=== PATIENT | female | born 1995 | race Caucasian/White ===

== ENCOUNTER 2022-12-08 12:50 | Inpatient (IN) | payer SELFPAY, OTHER ==
[2022-12-08] VITALS (24 sets, daily range): BP systolic 119–142; BP diastolic 66–94; PULSE 90–120; TEMP 36.4–37.2; O2SAT 97–99; BMI 30.9
[2022-12-08] MEDS: Lactated Ringers 1,000 ML 50 ML IV (13:40)
[2022-12-08 13:51] LABS: Absolute Lymphocyte Count 1.54 X10^3/uL (0.83-4.51); Absolute Neutrophil Count 9.2 X10^3/uL (2.0-7.7); Basophil# 0.02 X10^3/uL; Basophil% 0.2 % (0-1); Eosinophil# 0.04 X10^3/uL; Eosinophils% 0.3 % (0-5); Hematocrit 39.8 % (37-47); Hemoglobin 13.4 g/dL (12.0-15.0); Lymphocyte # 1.54 X10^3/ul (0.83-4.51); Lymphocyte % 13.4 % (19-41); Mean Corp Hgb Conc 33.7 g/dL (32-36); Mean Corpuscular Hgb 29.1 pg (27.0-32.0); Mean Corpuscular Volume 86.5 fL (81-99); Mean Platelet Vol. 11.8 fl (6.2-12.0); Monocyte# 0.67 X10^3/uL; Monocyte% 5.8 % (0-10); NRBC Flagged by Analyzer 0 % (0-5); Neutrophil # 9.18 X10^3/uL (2.7-7.7); Platelet Count 146 K/mm3 (150-450); RBC Distribution Width CV 14.3 % (11.6-14.6); RBC Distribution Width SD 44.3 fl (35.1-43.9); White Blood Count 11.5 K/mm3 (4.4-11.0)
[2022-12-08 14:08] LABS: ROM Internal Control Test YES-OK TO RESULT pt. (Internal QC)
[2022-12-08 14:09] LABS: ROM Patient Test POSITIVE (Negative)
[2022-12-08 14:34] LABS: Rubella IgG Reactive (Nonreactive); Syphilis Antibodies Non-reactive
[2022-12-08] MEDS: Oxytocin 15 Units/NS 250ml 15 UNITS/250 ML IV.SOLN 2 UNITS IV (14:34)
[2022-12-08 14:51] LABS: HIV - WCH Non-Reactive (Nonreactive); Hepatitis B Surface Antigen Non-Reactive (Nonreactive); Hepatitis C Antibody Non-Reactive (Nonreactive)
[2022-12-08 14:53] LABS: Bacteria 0 SEEN /hpf (None Seen); Mucous, Urine 0 SEEN /hpf (<or=2+)
[2022-12-08 14:55] LABS: Color, Urine Yellow (Yellow); Glucose, Dipstick Normal (Normal); Ketone-Dipstick 50 mg/dl (Negative); Leukocyte Esterase-Dipstick 500 /ul (Negative); Nitrite-Dipstick Negative (Negative); Occult Blood-Urine 250 /ul (Negative); Protein-Dipstick 30 mg/dl (Negative); Urine Bilirubin Dipstick Negative (Negative); Urine Clarity Sl. Cloudy (Clear); Urine Urobilinogen Normal (Normal); Urine pH 6.5 (5.0 - 8.0)
[2022-12-08 15:05] LABS: Red Blood Cells-Urine > 100 SEEN /hpf (0-5)
[2022-12-08 15:06] LABS: Squamous Epithelial Cells - UA 5-10 SEEN /hpf (5-10); White Blood Cells 5-10 SEEN /hpf (0-5)
[2022-12-08 15:11] LABS: Amphetamine Urine VISTA NEGATIVE (<1000 ng/mL); Barbiturate Urine VISTA NEGATIVE (< 200 ng/mL); Benzodiazepine Urine VISTA NEGATIVE (< 200 ng/mL); Cocaine Urine VISTA NEGATIVE (< 300 ng/mL); Ecstacy Urine VISTA NEGATIVE (< 500 ng/mL); Methadone Urine VISTA NEGATIVE (< 300 ng/mL); PCP Urine VISTA NEGATIVE (< 25 ng/mL); THC Urine VISTA NEGATIVE (< 50 ng/mL); Vista UDS pH Range 6
--- NOTE | 2022-12-08 16:52 | HP.PCM.OB_ITS ---
HPI - General General Date of Admission: 12/08/22 HPI Narrative ALBA LOPEZ, is a 27 F at 41.1 weeks gestation who presents as a transfer of care from center in [place]. She had spontaneous rupture of membranes for clear fluid on 12/07/22 at 1800 and has not had any contractions since. 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 She has not been rechecked today due to not having any contractions and is not in labor. Patient was agreeable for transfer of care for augmentation. has been uncomplicated. GBS unknown. 1 hour GCT negative. Maternal Data Information TAM Calculator Estimated Delivery Date Method Current WG Current Estimate 11/30/22 Manual 41w 1d PFSH PFSH Medical History (Updated 12/08/22 @ 17:43 by Genevieve Mcknight CNM) Gestational diabetes depression hemorrhage Home Medications Aimega 4 cap NOTE BID Check with primary doctor 12/08/22 [History Last Taken 12/08/22] alfalfa 250 mg tablet See Rx Instructions .Route .COMPLEX Check with primary doctor 12/08/22 [History Last Taken Unknown] borage seed oil 1,000 mg capsule See Rx Instructions .Route .COMPLEX Check with primary doctor 12/08/22 [History Last Taken Unknown] jkzkvkin-yre-Yu-FA 1 mg tablet 1 tab PO DAILY Check with primary doctor 12/08/22 [History Last Taken 12/08/22] Allergy/AdvReac Type Severity Reaction Status Date / Time No Known Allergies Allergy Verified 12/08/22 13:49 Surgical History (Updated 12/08/22 @ 14:08 by Samra Lott) History of surgery Social History Smoking Status: Never smoker History Elective abortions Hx Para 2 Spontaneous abortions Hx # Term Pregnancies Ectopic pregnancies Hx # Pregnancies Multiple births # of living children Visit Details OB Flowsheet Initial Weight: Not Recorded Date -?-?-?-?-?-?-?-?-?-?-?-?- EGA Weight BP Urine Prot -?-?-?-?-?-?-?-?--?-?-?-?- Glucose FHR FuHt Pres Dilation -?-?-?-?-?-?-?-?-?-?-?-?- Effaced St Visit Note 12/08/22 -?-?-?-?-?-?-?-?-?-?-?-?- 41w 1d 180 lb 6 oz 119/69 120/67 126/67 30 mg/dl (Negative) H -?-?-?-?-?-?-?-?-?-?-?-?- -?-?-?-?-?-?-?-?-?-?-?-?- NST FHR Rate Baby A Baseline: 150 Variability:: Moderate Accelerations:: 15 x 15 Decelerations:: None NST Reactive:: Yes FHR Category:: Category I Uterine Activity:: 2-4 ROS Eyes Eyes: Denies blurry vision, change in vision or spots in vision ENT HEENT: Denies dizziness or headache(s) Cardiovascular Cardiovascular: Denies abdominal pain, chest pain or dyspnea Respiratory/Chest Respiratory/Chest: Denies cough, dyspnea, shortness of breath at rest or shortness of breath with exertion Gastrointestinal Gastrointestinal: Denies abdominal pain, diarrhea or vomiting Genitourinary Genitourinary: Denies change in urinary stream, difficulty urinating or dysuria Musculoskeletal Musculoskeletal: Reports none Integumentary Integumentary: Denies rash Neurologic Neurologic: Denies dizziness, headache(s), memory loss or weakness Psychiatric Psychiatric: Reports none Vital Signs Vital Signs Vital Signs: 12/08/22 13:19 12/08/22 13:19 12/08/22 13:19 Temperature 98.6 F Temperature Source Pulse Rate 106 H Blood Pressure 119/69 BP Systolic 119 BP Diastolic 69 Pulse Ox 12/08/22 13:42 12/08/22 13:42 12/08/22 13:42 Temperature 98.7 F Temperature Source Temporal Pulse Rate Blood Pressure BP Systolic BP Diastolic Pulse Ox 98 12/08/22 15:49 12/08/22 15:49 12/08/22 15:49 Temperature Temperature Source Temporal Pulse Rate 115 H Blood Pressure 120/67 BP Systolic 120 BP Diastolic 67 Pulse Ox 12/08/22 15:49 12/08/22 15:49 Temperature 97.5 F L Temperature Source Pulse Rate Blood Pressure BP Systolic BP Diastolic Pulse Ox 97 Weight Weight: 180 lb 6 oz Body Mass Index (BMI) 30.9 Physical Exam Const alert, oriented x3 and no apparent distress General Appearance: cooperative Orientation / Consciousness: awake Exam Limitations: no limitations HEENT normocephalic Head and Scalp: normal to inspection Eyes General Eye: normal appearance of both eyes Neck full ROM and no lymphadenopathy Lymph Lymphatic: no lymphadenopathy noted Chest inspection of chest normal Resp normal respiratory effort, normal air movement and clear to auscultation bilaterally Effort and Inspection: able to speak in complete sentences and symmetric chest movement Cardio regular rate and regular rhythm GI normal to inspection, nondistended, normoactive bowel sounds Amniotic Fluid: clear amniotic fluid Back/Spine normal ROM Extremity full ROM and no calf tenderness Skin no rashes or lesions noted General Skin Exam: no breakdown Neuro oriented x3 and CN's II-XII intact bilaterally Psych mental status grossly normal and thought process normal Labs Labs Labs: Blood Type A POSITIVE Antibody Screen NEGATIVE Hct 39.8 % (37-47) Hgb 13.4 g/dL (12.0-15.0) Syphilis Total Ab Non-reactive Rubella IgG Antibody Reactive (Nonreactive) Hep Bs Antigen Non-Reactive (Nonreactive) HIV 1&2 Antibody Non-Reactive (Nonreactive) Group B Strep DNA Negative (Negative) Assessment & Plan (1) 41 weeks gestation of : (2) Spontaneous rupture of amniotic membranes: (3) Multigravida: (4) History of hemorrhage: (5) Spontaneous onset of labor: PLAN: Plan Admit to labor and delivery CE- /-2 ROM plus- positive Rapid GBS swab- NEGATIVE Start Pitocin 2 mu/min and increase per policy Pain medication or epidural when indicated Anticipate Dr. Freedman notified of admission and is collaborating physician
[2022-12-08 17:11] LABS: Group B Strep DNA By PCR Negative (Negative); Internal Control PASS; Probe Check PASS; Specimen Processing Control PASS
[2022-12-08 18:07] LABS: Chlamydia Trachomatis by PCR Negative (Negative); Neisserai gonorrhoeae by PCR Negative (Negative); Probe Check PASS; Sample Adequacy Control PASS; Specimen Processing Control PASS
--- NOTE | 2022-12-08 19:41 | EX.PCM.OBRPT ---
Assessment & Plan (1) (spontaneous vaginal delivery): (2) Care and examination of lactating mother: Maternal Data Information TAM Calculator Estimated Delivery Date Method Current WG Current Estimate 11/30/22 Manual 41w 1d Vaginal Delivery Maternal Presentation Maternal Presentation: Spontaneous Rupture of Membranes Maternal Presentation: at 41.1 weeks gestation with spontaneous onset of labor and spontaneous rupture of membranes. Type of Induction: Pitocin (Augmentation) Operative Information Date of Procedure: 12/08/22 Pre-Operative Diagnosis: Term gestation, spontaneous onset of labor, spontaneous rupture of membranes Post-Operative Diagnosis: , live female infant Surgery / Procedure Performed: Spontaneous Vaginal Delivery Type of Anesthesia: None Estimated Blood Loss: 350 Time of Delivery: 19:26 Findings Description of Procedure: Called to patient's room due to her having the urge to push and involuntarily bearing down. With minimal maternal effort, head delivered over intact perineum followed immediately by anterior shoulder and remainder of infant body. Vigorous female placed on maternal abdomen and was attended to by nursing staff. Pitocin IV started for active management of the third stage of labor. 3 vessel cord was clamped and cut by myself after 3 minute delay and infant placed immediately skin to skin with patient. Placenta delivered spontaneously and intact. Fundus firm 2 below U. Hemostasis obtained. Vagina and perineum intact. Vaginal sweep completed by me. EBL 350 cc. APGARS 8/9. Patient and bonding well at this time. Dr. Freedman notified of delivery. Presentation: Vertex and RAY Amniotic Membrane Rupture Type: Spontaneous Time of Membrane Rupture: 12/07/22 1800 Amniotic Fluid Description: Clear Placental Delivery Description: Spontaneous Placenta Disposition: [facility] Cord Vessel Description: 3 Vessels Cord Entanglement: None Infant A Gender: Female (1 minute): 8 (5 minute): 9 Delayed Cord Clamping: Yes Post Vaginal Delivery Medications Given After Delivery: IV Pitocin Episiotomy Description: None Laceration: None Complication Complications: None
[2022-12-08] MEDS: Oxytocin 15 Units/NS 250ml 15 UNITS/250 ML IV.SOLN 83 UNITS IV (19:58)
[2022-12-09 01:45] VITALS: BP 113/63; PULSE 87; RESP 15; TEMP 36.3
[2022-12-09 05:15] VITALS: BP 110/62; PULSE 82; RESP 16; TEMP 36.3
[2022-12-09 07:59] VITALS: BP 113/62; PULSE 77; RESP 17; TEMP 36.3
--- NOTE | 2022-12-09 08:35 | PCM.PN.OB ---
Subjective Subjective pain well controlled, average lochia Objective Data Objective Data Vital Signs: Vital Signs Temp Pulse Resp BP Pulse Ox O2 Del Method 97.4 F L 77 17 113/62 98 Room Air 12/09/22 07:59 12/09/22 07:59 12/09/22 07:59 12/09/22 07:59 12/08/22 21:48 12/09/22 05:15 Oxygen Delivery Method Room Air Weight: 81.817 kg Body Mass Index (BMI) 30.9 Intake & Output: Intake and Output for Last 24 Hours 12/07/22 12/08/22 12/09/22 23:59 23:59 23:59 Intake Total 2304.55 / 2304.55 Output Total 850 / 850 700 / 700 Balance 1454.55 / 1454.55 -700 / -700 Lab / Micro Data Result Diagrams: 12/08/22 13:40 Labs: Laboratory Results - last 24 hr 12/08/22 13:35: Group B Strep DNA Negative, Specimen Comment Not Reportable 12/08/22 13:35: Vag Amniotic Fld Detect POSITIVE H 12/08/22 13:40: WBC 11.5 H, RBC 4.60, Hgb 13.4, Hct 39.8, MCV 86.5, MCH 29.1, MCHC 33.7, RDW Std Deviation 44.3 H, RDW Coeff of [place] 14.3, Plt Count 146 L, MPV 11.8, Immature Gran % (Auto) 0.300, Neut % (Auto) 80.0 H, Lymph % (Auto) 13.4 L, [place] % (Auto) 5.8, Eos % (Auto) 0.3, Baso % (Auto) 0.2, Absolute Neuts (auto) 9.2 H, Absolute Lymphs (auto) 1.54, Nucleated RBC % 0 12/08/22 13:40: Syphilis Total Ab Non-reactive, Rubella IgG Antibody Reactive 12/08/22 13:40: Blood Type A POSITIVE, Antibody Screen NEGATIVE 12/08/22 13:40: Hep Bs Antigen Non-Reactive, Hepatitis C Antibody Non-Reactive, HIV 1&2 Antibody Non-Reactive 12/08/22 14:30: Urine Color Yellow, Urine Clarity Sl. Cloudy, Urine pH 6.5, Ur Specific [place] 1.010, Urine Protein 30 H, Urine Glucose (UA) Normal, Urine Ketones 50 H, Urine Occult Blood 250 H, Urine Nitrite Negative, Urine Bilirubin Negative, Urine Urobilinogen Normal, Ur Leukocyte Esterase 500 H, Urine RBC > 100 SEEN, Urine WBC 5-10 SEEN, Ur Squamous Epith Cells 5-10 SEEN, Urine Bacteria 0 SEEN, Urine Mucus 0 SEEN 12/08/22 14:30: Urine Opiates Screen NEGATIVE, Urine Methadone Screen NEGATIVE, Ur Barbiturates Screen NEGATIVE, Ur Phencyclidine Scrn NEGATIVE, Ur Amphetamines Screen NEGATIVE, MDMA (Ecstasy) Screen NEGATIVE, U Benzodiazepines Scrn NEGATIVE, Urine Cocaine Screen NEGATIVE, U Cannabinoids Screen NEGATIVE, Ur Drug Screen Comment 12/08/22 14:30: Chlam trachomat DNA PCR Negative, N.gonorrhoeae DNA (PCR) Negative Physical Exam Const alert and no apparent distress Narrative: Fundus firm, below umbilicus. Assessment & Plan (1) (spontaneous vaginal delivery): PLAN: PPD#1 s/p plans d/c tomorrow
[2022-12-09 12:19] VITALS: BP 113/59; PULSE 76; RESP 16; TEMP 36.8
[2022-12-09 16:00] VITALS: BP 102/59; PULSE 88; RESP 16; TEMP 36.4
[2022-12-09 20:31] VITALS: BP 107/68; PULSE 82; RESP 14; TEMP 36.5
[2022-12-10 02:05] VITALS: BP 114/62; PULSE 77; RESP 14; TEMP 36.2
[2022-12-10 08:00] VITALS: BP 121/66; PULSE 100; RESP 16; TEMP 36.5
--- NOTE | 2022-12-10 08:42 | PCM.DC.SUM ---
Providers Date of Admission: 12/08/22 Primary Care Physician: Chelsie Primary Care Phys Reason For Visit: VAG Diagnosis Discharge Diagnosis (1) (spontaneous vaginal delivery): Status: Acute Code(s): O80 - Encounter for full-term uncomplicated delivery Medications at Discharge Home Medications Aimega 4 cap NOTE BID Check with primary doctor 12/08/22 alfalfa 250 mg tablet See Rx Instructions .Route .COMPLEX Check with primary doctor 12/08/22 borage seed oil 1,000 mg capsule See Rx Instructions .Route .COMPLEX Check with primary doctor 12/08/22 pjzcxwkp-mgy-Xb-FA 1 mg tablet 1 tab PO DAILY Check with primary doctor 12/08/22 acetaminophen 500 mg tablet 1,000 mg PO Q6H PRN PRN Pain 1-10 Or Fever #0 tabs 12/10/22 naproxen 500 mg tablet 500 mg PO Q8H PRN PRN Pain Score 1-3 #0 tabs 12/10/22 Weight / BMI Weight Weight: 180 lb 6 oz Body Mass Index (BMI) 30.9 ABG / Lab / Microbiology Data Result Diagrams: 12/08/22 13:40 Microbiology: Microbiology 12/08/22 Unknown Genital vaginal Group B Streptococcus Culture - Final Group B Beta Streptococcus is not isolated. Meaningful Use Info Meaningful Use Diagnoses (Choose all that apply): None applicable Discharge Plan Admission Admit Date/Time: 12/08/22 12:50 Primary Reason for Your Visit: Vaginal Delivery Attending Provider: Genevieve Mcknight Primary Care Provider: Care Physician,No Primary Instructions Patient Instructions: After a Vaginal Discharge Orders/Prescriptions Prescriptions: New acetaminophen 500 mg Tablet 1,000 mg PO Q6H PRN PRN (Reason: Pain 1-10 Or Fever) Qty: 0 0RF naproxen 500 mg Tablet 500 mg PO Q8H PRN PRN (Reason: Pain Score 1-3) Qty: 0 0RF Continued nywxkxae-fbp-Lr-FA 1 mg Tablet 1 tab PO DAILY No Action Aimega 4 cap NOTE BID Rx Instructions: takes 2 PO in AM and 2 PO in PM for hormone balancing alfalfa 250 mg Tablet See Rx Instructions .ROUTE .COMPLEX Rx Instructions: for increased milk supply after delivery 3 capsules in am, at noon, and in PM Borage Oil 1,000 mg Capsule See Rx Instructions .ROUTE .COMPLEX Rx Instructions: For cervical ripening. It is a capsule that she places in the vagina and takes orally 2 times a day Referrals / Follow Up: Genevieve Mcknight CNM [Med Staff - Adv Practice Prof] - (Follow up with [facility] for care at 2 and 6 weeks or with our office. ) Care Physician,No Primary [Primary Care Provider] - Disposition Disposition (needs filled in before D/C Order can be placed): Home, Self Care
--- NOTE | 2022-12-10 08:44 | PCM.PN.OB ---
Subjective Subjective Doing well per patient and nursing staff. Ambulating and taking PO without difficulty. Voiding and passing flatus. Pain controlled. , services for assistance. Denies headache, visual changes, chest pain, shortness of breath, leg pain or increased bleeding. Lochia normal. Objective Data Objective Data Vital Signs: Vital Signs Temp Pulse Resp BP Pulse Ox O2 Del Method 97.7 F L 100 16 121/66 H 98 Room Air 12/10/22 08:00 12/10/22 08:00 12/10/22 08:00 12/10/22 08:00 12/08/22 21:48 12/10/22 02:05 Oxygen Delivery Method Room Air Weight: 180 lb 6 oz Body Mass Index (BMI) 30.9 Intake & Output: Intake and Output for Last 24 Hours 12/08/22 12/09/22 12/10/22 23:59 23:59 23:59 Intake Total 2304.55 / 2304.55 Output Total 850 / 850 700 / 700 Balance 1454.55 / 1454.55 -700 / -700 Lab / Micro Data Result Diagrams: 12/08/22 13:40 Micro: Microbiology 12/08/22 Unknown Genital vaginal Group B Streptococcus Culture - Final Group B Beta Streptococcus is not isolated. ROS Constitutional Constitutional: Reports systems reviewed and no addt'l complaints, except as documented; Denies headache(s) Eyes Eyes: Denies acute decrease in peripheral vision, blurry vision or change in vision ENT HEENT: Reports systems reviewed and no addt'l complaints, except as documented Cardiovascular Cardiovascular: Denies chest pain or dizziness Respiratory/Chest Respiratory/Chest: Denies cough, dyspnea, dyspnea on exertion, shortness of breath at rest or shortness of breath with exertion Gastrointestinal Gastrointestinal: Denies abdominal pain, diarrhea, nausea or vomiting Genitourinary Genitourinary: Denies abdominal discomfort Musculoskeletal Musculoskeletal: Denies limited range of motion Integumentary Integumentary: Reports systems reviewed and no addt'l complaints, except as documented Neurologic Neurologic: Reports systems reviewed and no addt'l complaints, except as documented Psychiatric Psychiatric: Reports systems reviewed and no addt'l complaints, except as documented Endocrine Endocrinology: Reports systems reviewed and no addt'l complaints, except as documented Hematologic/Lymphatic Hematologic/Lymphatic: Reports systems reviewed and no addt'l complaints, except as documented Allergic/Immunologic Allergic/Immunologic: Reports systems reviewed and no addt'l complaints, except as documented Physical Exam Const alert and oriented x3 General Appearance: cooperative Orientation / Consciousness: awake, oriented to person, oriented to place and oriented to time Exam Limitations: no limitations HEENT normocephalic Head and Scalp: normal to inspection, normocephalic and atraumatic Face and Sinus: normal facial exam Eyes General Eye: normal appearance of both eyes Neck full ROM Chest Chest: symmetrical chest wall rise Resp normal respiratory effort and normal air movement Auscultation: clear to auscultation bilaterally Cardio regular rate, regular rhythm, S1 normal heart sound, S2 normal heart sound, no murmurs, no rub, no gallops and no clicks GI normal to inspection, nondistended, normoactive bowel sounds and non-tender appearance of the vagina normal Bladder / Kidney Exam: no CVA tenderness Back/Spine normal ROM Extremity normal to inspection and full ROM Skin no rashes or lesions noted Neuro oriented x3 and moves all extremities Sensorium / Orientation: awake, alert and oriented to person Motor Exam: clonus absent Deep Tendon Reflexes: Rt Patellar (L4): 2+ and Lt Patellar (L4): 2+ Assessment & Plan (1) Care and examination of lactating mother: (2) (spontaneous vaginal delivery): PLAN: Plan 1) Routine PP care 2) I&O 3) Pain management 4) vitals stable 5) D/C home 6) Follow up in 2 and 6 weeks PP
== END 2022-12-10 09:10 | disposition home or self-care (01) | DRG 807 ==
PROVIDERS: Admitting Provider Advanced Practice Midwife; Visit Provider Advanced Practice Midwife
DX: O48.0 Post-term pregnancy (principal); Z37.0 Single live birth; Z3A.41 41 weeks gestation of pregnancy
CPT/HCPCS: 59025; 59050; 80307; 81001; 84112; 85025; 86703; 86762; 86780; 86803; 86850; 86900; 86901; 87081; 87340; 87491; 87591; 87653; 99221; J7120; G0378